=== PATIENT | female | born 1940 | race Caucasian/White ===

== ENCOUNTER → 2017-04-15 | Outpatient (CLI) | payer MEDICARE ==
[~2017-04-15] MED LIST: ALBU8.5H5 INH; CHOL500050 PO; DEXA2TAB PO; DEXA4TAB PO; ESOM40CA PO; FAMO-79 PO; HYDR-3240 PO; LEVE100020 PO; LEVE500T53 PO; LEVE500T8 PO; LISI-170 PO; MAGN2400 PO; MULT-224 PO; MULT-257 PO; OMEG1CAP34 PO; OMEG500C3 PO; RIVA1TAB PO; SENN-31 PO; SIMV20TA3 PO
== END | disposition home or self-care (01) ==
LOC: CFH 11:38
PROVIDERS: ATTEND Family Medicine
DX: M25.562 Pain in left knee (principal)

== ENCOUNTER → 2018-09-22 | Outpatient (CLI) | payer MEDICARE ==
[~2018-09-22] MED LIST changes: +GADOBUTROL 7.5 MMOL/7.5 ML PFS ONE; -MULT-224 PO; +MULT-642 PO
== END | disposition home or self-care (01) ==
LOC: CFH 09:53
PROVIDERS: ATTEND Neurological Surgery
DX: D33.2 Benign neoplasm of brain, unspecified (principal); I67.82 Cerebral ischemia
CPT/HCPCS: 70553; 82565; A9585

== ENCOUNTER 2018-10-05 09:32 | Inpatient (IN) | payer MEDICARE ==
[~2018-10-05] VITALS: Ht 162.6 cm; Wt 85.2 kg
[~2018-10-05 09:32] MED LIST changes: -GADOBUTROL 7.5 MMOL/7.5 ML PFS ONE
--- NOTE | 2018-10-05 10:17 | NUR ---
THIS IS A 77 YO FEMALE WHO PRESENTS TO THE ER C/O COUGH/CONGESTION/BILAT EAR FULLNESS X SEVERAL WEEKS. PT REPORTS LOOSE PRODUCTIVE COUGH WITH YELLOW PHLEGM. PT CURRENTLY DENIES BODY ACHES/FEVERS. PT ALSO C/O RIGHT EYE REDNESS AND "GLUED SHUT IN THE MORNING" SINCE THIS MORNING. PT AO X 4. SKIN PWD. RESP EVEN AND EQAUL. PT ABLE TO SPEAK IN FULL 10-12 WORD SENTENCES W/O DIFFICULTY. OCCAISIONAL LOOSE COUGH NOTED BY RN. PT ON CONT BP AND O2 MONITORS. DAUGHTER AT BEDSIDE. CALL LIGHT WITHIN REACH. WILL CONT TO MONITOR PT.
--- NOTE | 2018-10-05 11:27 | NUR ---
PT CURRENTLY RESTING ON GURNEY. NAD NOTED. SKIN PWD. RESP EVEN AND EQAUL. PT ABLE TO SPEAK IN FULL 10-12 WORD SENTENCES W/O DIFFICULTY. OCCASIONAL LOOSE COUGH NOTED. PT AO X 4. PT ON CONT BP, CARDIAC AND O2 MONITORS. DAUGHTER AT BEDSIDE. WILL CONT TO MONITOR PT.
[2018-10-05 11:31] LABS: MEAN CORPUSCULAR HGB CONC 32.8 g/dL (32.4-35.8); MEAN CORPUSCULAR VOLUME 88.3 fL (80-100); MEAN PLATELET VOLUME 8.3 fL (7.4-10.4); PLATELET COUNT 313 x10^3/uL (130-400); RED CELL DISTRIBUTION WIDTH 14.9 % (9.6-15.2)
[2018-10-05 11:37] LABS: ALBUMIN 2.8 g/dL (3.4-5.0); ANION GAP 2 mmol/L (5-15); CALCIUM 8.8 mg/dL (8.5-10.1); CHLORIDE 110 mmol/L (98-107)
[2018-10-05 11:43] LABS: CREATININE 0.65 mg/dL (0.55-1.02); TROPONIN I < 0.015 ng/mL (0.000-0.045)
[2018-10-05] MEDS ORDERED: CEFTRIAXONE PMX 1GM/50ML 50 ML ONE (11:52)
[2018-10-05 11:54] LABS: BASOPHILS # (AUTO) 0.01 x10^3/uL (0-0.1); BASOPHILS % (AUTO) 0 % (0-1); EOSINOPHILS % (AUTO) 0 % (1-7); LYMPHOCYTES # (AUTO) 0.55 x10^3/uL (1-3.4); LYMPHOCYTES % (AUTO) 4 % (22-44); MD SCAN; MONOCYTES # (AUTO) 0.33 x10^3/uL (0.2-0.8); MONOCYTES % (AUTO) 3 % (2-9); NEUTROPHILS # (AUTO) 11.99 x10^3/uL (1.8-6.8); NEUTROPHILS % (AUTO) 93 % (42-75)
[2018-10-05] MEDS ORDERED: AZITHROMYCIN 500 MG in SODIUM CHLORIDE 0.9% 250 ML IVPB ONE (12:00)
[2018-10-05] MEDS ORDERED: CEFTRIAXONE PMX 1GM/50ML 50 ML IVPB ONE (12:00)
--- NOTE | 2018-10-05 13:25 | NUR ---
NEW IV STARTED FOR CT. 20G RT AC, CH
[2018-10-05] MEDS ORDERED: OMNIPAQUE 350 MG/ML, 100ML BOTTLE ONE (13:35)
--- NOTE | 2018-10-05 13:40 | NUR ---
PT PROVIDED WITH MEAL TRAY WITH OKAY BY BETITO STACK. PT AO X 4. SKIN PWD. RESP EVEN AND EQAUL. OCCAISIONAL LOOSE COUGH NOTED. NAD NOTED. PT ON CONT BP, CARDIAC AND O2 MONITORS. CALL LIGHT WITHINR EACH. WILL CONT TO MONITOR PT.
[2018-10-05] MEDS ORDERED: SODIUM CHLORIDE FLUSH 10ML SYR IVF PRN (14:00)
--- NOTE | 2018-10-05 14:20 | NUR ---
PT CURRENTLY RESTING ON GURNEY. NAD NOTED. SKIN PWD. RESP EVEN AND EQAUL. OCCAISIONAL LOOSE COUGH NOTED. PT ABLE TO SPEAK IN FULL 10-12 WORD SENTENCTES W/O DIFFICULTY. PT AO X 4. PT AWARE THAT WE ARE WAITING FOR ADMISSION. PT DENIES PAIN/NEEDS AT THIS TIME. CALL LIGHT WITHIN REACH. WILL CONT TO MONITOR PT.
[2018-10-05] MEDS ORDERED: ACETAMINOPHEN 325 MG TABLET PO PRN (14:30)
[2018-10-05] MEDS ORDERED: ONDANSETRON ODT 4 MG PO PRN (14:30)
[2018-10-05] MEDS ORDERED: ALBUTEROL SULFATE 2.5 MG/3 ML NPPB PRN (14:30)
[2018-10-05] MEDS: CEFTRIAXONE PMX 2GM/50ML 50 ML IV SCH (14:30)
[2018-10-05] MEDS ORDERED: ERGOCALCIFEROL 50,000 UNIT CAPSULE PO SCH (14:30)
[2018-10-05] MEDS ORDERED: GUAIFENESIN/DM 200-20MG, 10ML UDC PO PRN (14:30)
[2018-10-05] MEDS ORDERED: ONDANSETRON 2MG/ML, 2ML IVPush PRN (14:30)
--- NOTE | 2018-10-05 14:35 | NUR ---
ADMITTING MD SCHMID WAS AT BEDSIDE FOR EVAL. REPORT TO JOSÉ ANTONIO CANDELARIA ON MED/SURG.
[2018-10-05 15:31] VITALS: BP 133/84
[2018-10-05] MEDS: LACTOBACILLUS CHEW TABLET PO SCH ×2 (16:19→21:02)
[2018-10-05] MEDS: SODIUM CHLORIDE 0.9% 1,000 ML IV SCH (16:19)
[2018-10-05 19:07] VITALS: BP 129/78
[2018-10-05] MEDS: CARVEDILOL 6.25 MG TABLET PO SCH (19:31)
[2018-10-05] MEDS ORDERED: SIMVASTATIN 20 MG TABLET PO SCH (21:00)
[2018-10-05] MEDS: HEPARIN 5,000 UNITS/ML, 1ML SQ SCH (21:02)
[2018-10-06 04:40] VITALS: BP 139/78
[2018-10-06 05:07] LABS: BASOPHILS # (AUTO) 0.02 x10^3/uL (0-0.1); BASOPHILS % (AUTO) 0 % (0-1); EOSINOPHILS # (AUTO) 0.04 x10^3/uL (0-0.4); EOSINOPHILS % (AUTO) 0 % (1-7); LYMPHOCYTES # (AUTO) 1.08 x10^3/uL (1-3.4); LYMPHOCYTES % (AUTO) 9 % (22-44); MD NO; MEAN CORPUSCULAR HEMOGLOBIN 29.9 pg (27.0-34.8); MEAN CORPUSCULAR VOLUME 87.9 fL (80-100); MEAN PLATELET VOLUME 7.8 fL (7.4-10.4); MONOCYTES # (AUTO) 0.29 x10^3/uL (0.2-0.8); MONOCYTES % (AUTO) 2 % (2-9); NEUTROPHILS # (AUTO) 11.23 x10^3/uL (1.8-6.8); NEUTROPHILS % (AUTO) 89 % (42-75); PLATELET COUNT 286 x10^3/uL (130-400); RED BLOOD COUNT 3.93 x10^6/uL (3.82-5.3)
[2018-10-06 05:19] LABS: ANION GAP 5 mmol/L (5-15); CALCIUM 8.2 mg/dL (8.5-10.1); CHLORIDE 110 mmol/L (98-107)
[2018-10-06 05:20] LABS: CREATININE 0.62 mg/dL (0.55-1.02)
[2018-10-06] MEDS: HEPARIN 5,000 UNITS/ML, 1ML SQ SCH ×2 (05:58→13:22)
[2018-10-06] MEDS: CARVEDILOL 6.25 MG TABLET PO SCH ×2 (05:58→17:15)
[2018-10-06 07:15] VITALS: BP 117/76
[2018-10-06] MEDS ORDERED: POTASSIUM CHLORIDE 20 MEQ TAB.ER.PRT PO ONE (07:30)
[2018-10-06] MEDS: LACTOBACILLUS CHEW TABLET PO SCH ×2 (08:57→17:15)
[2018-10-06] MEDS: SODIUM CHLORIDE 0.9% 1,000 ML IV SCH (08:57)
[2018-10-06] MEDS ORDERED: OMEGA-3/FISH OIL CAPSULE PO SCH (09:00)
[2018-10-06] MEDS ORDERED: LISINOPRIL 20 MG TABLET PO SCH (09:00)
[2018-10-06] MEDS ORDERED: MULTIVITAMIN 1 TABLET PO SCH (09:00)
[2018-10-06] MEDS ORDERED: DOXY100C2 PO (09:03)
[2018-10-06] MEDS ORDERED: AMOX-291 PO (09:03)
[2018-10-06] MEDS ORDERED: CARV6.2512 PO (09:03)
[2018-10-06] MEDS ORDERED: GUAI5SYR PO (09:03)
[2018-10-06] MEDS ORDERED: ACID1TAB7 PO (09:03)
[2018-10-06] MEDS: CEFTRIAXONE PMX 2GM/50ML 50 ML IV SCH (12:52)
[2018-10-06 13:57] VITALS: BP 133/70
== END 2018-10-06 18:00 | disposition home health service (06) | DRG 871 ==
LOC: ED 11:08 → EDIP 14:53 → 3NE 15:07
PROVIDERS: ADMIT Internal Medicine; ATTEND Internal Medicine
DX: A41.9 Sepsis, unspecified organism (principal); J15.9 Unspecified bacterial pneumonia; J96.01 Acute respiratory failure with hypoxia; E87.6 Hypokalemia; G40.909 Epilepsy, unspecified, not intractable, without status epilepticus; J40 Bronchitis, not specified as acute or chronic; I10 Essential (primary) hypertension; K21.9 Gastro-esophageal reflux disease without esophagitis; Z80.1 Family history of malignant neoplasm of trachea, bronchus and lung; Z80.52 Family history of malignant neoplasm of bladder; Z86.011 Personal history of benign neoplasm of the brain; Z86.711 Personal history of pulmonary embolism; Z90.710 Acquired absence of both cervix and uterus; E66.9 Obesity, unspecified; M19.90 Unspecified osteoarthritis, unspecified site; Z68.32 Body mass index [BMI] 32.0-32.9, adult
CPT/HCPCS: 36415; 71046; 71275; 80048; 82040; 83605; 83880; 84145; 84484; 85025; 87040; 93005; 99285; G0378; J0456; J0696; J1644; Q9967; J7030; J7050

== ENCOUNTER → 2019-06-04 | Outpatient (CLI) | payer MEDICARE ==
[~2019-06-04] MED LIST changes: +ACID1TAB7 PO; +AMOX-291 PO; +CARV6.2512 PO; +DOXY100C2 PO; +GUAI5SYR PO
== END | disposition home or self-care (01) ==
LOC: CFH 08:59
PROVIDERS: ATTEND Nurse Practitioner Critical Care Medicine
DX: M47.26 Other spondylosis with radiculopathy, lumbar region (principal); M47.817 Spondylosis without myelopathy or radiculopathy, lumbosacral region
CPT/HCPCS: 72120